=== PATIENT | male | born 1945 | race Caucasian/White ===

== ENCOUNTER 2023-04-16 07:59 | Outpatient (CLI) | payer MEDICARE, OTHER | END 2023-04-16 08:00 | disposition home or self-care (01) | LOC: LAB.N 07:59 | PROVIDERS: ATTEND Specialist | DX: Z01.89 Encounter for other specified special examinations (principal) | CPT/HCPCS: 36415 ==

== ENCOUNTER 2023-10-06 09:55 | Outpatient (CLI) | payer MEDICARE, OTHER | END 2023-10-06 09:56 | disposition home or self-care (01) | LOC: LAB.N 09:55 | DX: Z01.89 Encounter for other specified special examinations (principal) | CPT/HCPCS: 36415 ==